=== PATIENT | male | born 2000 | race Caucasian/White ===

== ENCOUNTER 2021-01-03 20:47 | Observation (INO) ==
[2021-01-03] MEDS ORDERED: SODIUM CHLORIDE 0.9% 1000ML 1,000 ML IV SCH (21:15)
[2021-01-03 21:35] LABS: Albumin Level 5.2 gm/dl (3.4-5.0); BUN Creatinine Ratio 11.8 (10-20); Calcium 9.4 mg/dl (8.5-10.1); Creatinine Clr Calc Pharmacy 62.1 ml/min; Est GFR (African American) 90.2; Est GFR (Non-African American) 77.8; Potassium 3.6 mmol/L (3.5-5.1)
--- NOTE | 2021-01-03 21:36 | Emergency Department Note ---
Impression & Plan Acute appendicitis, Abdominal pain ED Provider Note NAME: HUYEN MARIE AGE: 20 SEX: M : 2000 ARRIVES VIA: Walk-In INFORMANT: Patient, ED PROVIDER(S): Tristen Hernández DO CHIEF COMPLAINT: Abdominal pain HPI: The patient is a 20-year-old male who presented to the emergency department for abdominal pain. The patient states he started noticing lower abdominal pain over the last 24 hours. He notices it mostly on the right side. He denies having any testicular pain. He denies having any nausea or vomiting. He denies having any chest pain fever or difficulty breathing. He states the pain is moderate and worsened with ambulation as well as palpation over the lower abdomen. He notices no hernias or swelling in the groin. He states the pain is moderate and relieved minimally with rest. His father is a physician and told him to come to the emergency department for possible appendicitis work-up. ROS: See above HPI for pertinent positives & negatives. A total of 10 systems reviewed and were otherwise negative. PAST MEDICAL HISTORY: See Below PAST SURGICAL HISTORY: See Below FAMILY HISTORY: See Below SOCIAL HISTORY: See Below HOME MEDICATIONS: See Below ALLERGIES: See Below VITALS: See Below PHYSICAL EXAMINATION: GENERAL: Patient is awake alert in no acute distress patient is resting comfortably and showing no signs of anxiety EYES: The conjunctivae are clear. The pupils are round and reactive. EARS, NOSE, MOUTH AND THROAT: The nose is without any evidence of any deformity. NECK: The neck is nontender and supple. RESPIRATORY: Normal respiratory effort is noted there is no evidence of wheezing rhonchi or rales CARDIOVASCULAR: Regular rate and rhythm noted there no murmurs rubs or gallops normal S1 normal S2. GASTROINTESTINAL: The abdomen is soft and nondistended. There is right lower quadrant tenderness to palpation but no guarding rigidity. : Testicles are descended and nontender bilaterally. Circumcised male genitalia was appreciated. MUSCULOSKELETAL/EXTREMITIES: There is no evidence of gross deformity full range of motion is noted in the hips and shoulders. SKIN: There is no obvious evidence of any rash. There are no petechiae, pallor or cyanosis noted. NEUROLOGIC: Patient is awake alert and oriented x3. MEDICAL DECISION MAKING: The patient is a 20-year-old male who presented to the emergency department for an evaluation of right lower quadrant abdominal pain. The patient did have reproducible right lower quadrant abdominal pain on physical exam. The pain was less than 24 hours. His white blood cell count was negative but given the location of his symptoms further radiographic studies were obtained to rule out appendicitis. The patient was treated with IV fluids in the emergency department. He did not wish to have any medication for pain. I discussed the patient's laboratory and radiographic studies with him. He was found to have signs of appendicitis on CT the abdomen and pelvis. I also discussed his case with the on-call general surgeon group. [facility] and disposition. Triage Nursing notes reviewed. Prior medical records reviewed Vital Signs: reviewed and remarkable for elevated blood pressure and tachycardia. Differential diagnosis: Appendicitis, testicular torsion, infections, diverticulitis, UTI, obstruction, mesenteric ischemia, aortic pathology, inflammatory bowel disease, renal colic, PUD, pancreatitis, biliary pathology, hernia, volvulus, constipation, as well as other pathologies. ER treatment provided: See below Diagnostics interpreted by me: ECG: none Cardiac Monitoring: An order was placed for continuous cardiac monitoring. The monitor shows a rate of 110 bpm with sinus tachycardia rhythm. Laboratory studies: As stated above and show below. Imaging studies: See below Consultation(s): I discussed this case with Clemente Gu who was on-call for the general surgical group. He is agreed to evaluate the patient in the emergency department for further management and disposition. Past Med/Surg History Surgical History S/P wisdom tooth extraction Social History Smoking Status: Never smoker Feels Safe at Home: Yes Allergies Allergies Allergy/AdvReac Type Severity Reaction Status Date / Time No Known Allergies Allergy Unverified 01/03/21 21:28 Home Meds Home Medications Medication Instructions Recorded Confirmed No Known Home Medications 01/03/21 01/03/21 Results & Data (ED) Vital Signs Vital Signs - 24 hr 01/03/21 20:50 01/03/21 21:38 01/03/21 22:18 Temperature 36.7 C Temperature Source Oral Pulse Rate 131 H Pulse Rate [Bilateral Apical] 85 106 H Respiratory Rate 19 20 20 Respiratory Effort / Characteristics Non-Labored Respiratory Depth Normal Blood Pressure 149/102 H Blood Pressure [Left Arm] 122/81 136/85 Blood Pressure Mean 117 Blood Pressure Mean [Left Arm] 94 102 Pulse Oximetry 98 100 99 Oxygen Delivery Method Room Air Room Air Room Air Sepsis Recent Fever Within 48 Hours No Sepsis New/Unexplained Change in Mental Status No Sepsis Action Taken by Nursing No Action Required 01/03/21 22:58 Temperature Temperature Source Pulse Rate Pulse Rate [Bilateral Apical] 105 H Respiratory Rate 20 Respiratory Effort / Characteristics Respiratory Depth Blood Pressure Blood Pressure [Left Arm] 149/80 H Blood Pressure Mean Blood Pressure Mean [Left Arm] 103 Pulse Oximetry 99 Oxygen Delivery Method Sepsis Recent Fever Within 48 Hours Sepsis New/Unexplained Change in Mental Status Sepsis Action Taken by Detention Medications Current Medication List: was personally reviewed by me Laboratory Data Attestation: I reviewed the patient's lab results. Result diagrams: 01/03/21 21:10 01/03/21 21:10 Lab Results 01/03/21 01/03/21 01/03/21 Range/Units 21:10 21:10 21:10 WBC 8.61 (4.8-10.8) K/uL RBC 5.22 (4.7-6.1) M/uL Hgb 16.4 (14.0-18.0) g/dL Hct 46.9 (42-52) % MCV 89.8 (80-100) fL MCH 31.4 (25-34) pg MCHC 35.0 (32-36) g/dL RDW Std Deviation 40.2 (36.4-46.3) fL RDW Coeff of Clau 12.3 (11.5-14.5) % Plt Count 292 (130-400) K/uL MPV 11.5 H (7.4-10.4) fL Immature Gran % (Auto) 0.2 % Neut % (Auto) 61.6 % Lymph % (Auto) 27.3 % [place] % (Auto) 8.5 % Eos % (Auto) 1.7 % Baso % (Auto) 0.7 % Neut # (Auto) 5.30 (1.4-6.5) K/uL Lymph # (Auto) 2.35 (1.2-3.4) K/uL [place] # (Auto) 0.73 H (0.11-0.59) K/uL Eos # (Auto) 0.15 (0-0.5) K/uL Baso # (Auto) 0.06 (0-0.2) K/uL Immature Gran # (Auto) 0.02 (0.00-0.02) K/uL Sodium 140 (136-145) mmol/L Potassium 3.6 (3.5-5.1) mmol/L Chloride 105 (98-107) mmol/L Carbon Dioxide 29 (21-32) mmol/L Anion Gap 6.0 (3-11) BUN 15 (7-18) mg/dl Creatinine 1.31 (0.6-1.4) mg/dl Est Cr Clr Drug Dosing 62.1 ml/min Est GFR ( Amer) 90.2 Est GFR (Non-Af Amer) 77.8 BUN/Creatinine Ratio 11.8 (10-20) Glucose 134 H (70-99) mg/dl Calcium 9.4 (8.5-10.1) mg/dl Total Bilirubin 0.8 (0.2-1) mg/dl AST 10 L (15-37) U/L ALT 20 (12-78) U/L Alkaline Phosphatase 111 (45-117) U/L Total Protein 8.5 H (6.4-8.2) gm/dl Albumin 5.2 H (3.4-5.0) gm/dl Globulin 3.3 (2.5-4.0) gm/dl Albumin/Globulin Ratio 1.6 (0.9-2) Lipase 93 (73-393) U/L Urine Color Yellow Urine Appearance Clear (Clear) Urine pH 5.5 (4.5-7.5) Ur Specific [place] 1.015 (1.000-1.030) Urine Protein Negative (Negative) Urine Glucose (UA) Negative (Negative) Urine Ketones Negative (Negative) Urine Blood Negative (Negative) Urine Nitrite Negative (Negative) Urine Bilirubin Negative (Negative) Urine Urobilinogen Negative (Negative) Ur Leukocyte Esterase Negative (Negative) COVID-19 Eval Order 01/03/21 Range/Units 23:15 WBC (4.8-10.8) K/uL RBC (4.7-6.1) M/uL Hgb (14.0-18.0) g/dL Hct (42-52) % MCV (80-100) fL MCH (25-34) pg MCHC (32-36) g/dL RDW Std Deviation (36.4-46.3) fL RDW Coeff of Clau (11.5-14.5) % Plt Count (130-400) K/uL MPV (7.4-10.4) fL Immature Gran % (Auto) % Neut % (Auto) % Lymph % (Auto) % [place] % (Auto) % Eos % (Auto) % Baso % (Auto) % Neut # (Auto) (1.4-6.5) K/uL Lymph # (Auto) (1.2-3.4) K/uL [place] # (Auto) (0.11-0.59) K/uL Eos # (Auto) (0-0.5) K/uL Baso # (Auto) (0-0.2) K/uL Immature Gran # (Auto) (0.00-0.02) K/uL Sodium (136-145) mmol/L Potassium (3.5-5.1) mmol/L Chloride (98-107) mmol/L Carbon Dioxide (21-32) mmol/L Anion Gap (3-11) BUN (7-18) mg/dl Creatinine (0.6-1.4) mg/dl Est Cr Clr Drug Dosing ml/min Est GFR ( Amer) Est GFR (Non-Af Amer) BUN/Creatinine Ratio (10-20) Glucose (70-99) mg/dl Calcium (8.5-10.1) mg/dl Total Bilirubin (0.2-1) mg/dl AST (15-37) U/L ALT (12-78) U/L Alkaline Phosphatase (45-117) U/L Total Protein (6.4-8.2) gm/dl Albumin (3.4-5.0) gm/dl Globulin (2.5-4.0) gm/dl Albumin/Globulin Ratio (0.9-2) Lipase (73-393) U/L Urine Color Urine Appearance (Clear) Urine pH (4.5-7.5) Ur Specific [place] (1.000-1.030) Urine Protein (Negative) Urine Glucose (UA) (Negative) Urine Ketones (Negative) Urine Blood (Negative) Urine Nitrite (Negative) Urine Bilirubin (Negative) Urine Urobilinogen (Negative) Ur Leukocyte Esterase (Negative) COVID-19 Eval [facility] Administered Medications Discontinued Medications Sodium Chloride (Nss 1000ml) 1,000 mls @ 999 mls/hr IV .Q1H1M FREDA Stop: 01/03/21 22:15 Last Infusion: 01/03/21 22:09 Dose: 0 mls/hr Documented by: [id number] Admin: 01/03/21 21:18 Dose: 999 mls/hr Documented by: [id number] Ioversol (Ioversol 100ml) 94 ml IV ONCE ONE Stop: 01/03/21 22:39 Last Admin: 01/03/21 22:39 Dose: 94 ml Documented by: [id number] Imaging Data Radiologist's Impression: Patient: HUYEN MARIE I Admit Date: 01/03/21 MR#: [id number] Address1: [facility] [place] Acct ID:[id number] Address2: Date: 2000 [facility] Zip: [place] [address] Age: 20 Location: ED Sex: M Room/Bed: Att Phy: Diagnosis: RLQ ABD PAIN Loren Phy: [facility] Service Date: 01/03/21 Fam Phy: Interpreting Phy: Juan Guerra MD Admit Phy: Ordering Phy: Tristen Hernández, cc: ~ CT SCAN OF THE ABDOMEN AND PELVIS WITH IV CONTRAST CLINICAL HISTORY: Right lower quadrant abdominal pain. COMPARISON STUDY: No priors. TECHNIQUE: Following the IV administration of 94 cc of Optiray 320, CT scan of the abdomen and pelvis is performed from the lung bases to the proximal femora. Images are reviewed in the axial, sagittal, and coronal planes. IV contrast was administered without complication. A dose lowering technique was utilized adhering to the principles of ALARA. CT DOSE: 241.81 mGy.cm FINDINGS: Lung bases: The heart is normal in size and without pericardial effusion. The lung bases are clear. Liver: The contrast-enhanced liver is normal in size, contour, and attenuation. There is no intrahepatic biliary ductal dilatation. The hepatic veins and portal veins are patent. Gallbladder: Unremarkable. Spleen: Normal in size and attenuation. Pancreas: Unremarkable. Adrenal glands: Unremarkable. Kidneys: The contrast enhanced kidneys are normal in size and without hydronephrosis. The kidneys enhance and excrete symmetrically. Abdominal vasculature: The abdominal aorta is normal in course and caliber. Bowel: There is no bowel obstruction. Moderate fecal retention is seen throughout the colon. The appendix is distended and fluid-filled, measuring up to 10 mm as seen on axial image #20 and 64. The appendiceal wall is thickened and there is mild periappendiceal inflammation. Findings are consistent with acute appendicitis. A calcified appendicolith is seen on axial image #249. No organized fluid collection is seen to suggest abscess. Peritoneum: There is no intraperitoneal free air or abdominal ascites. Lymphadenopathy: None. Pelvic viscera: The bladder, prostate, and seminal vesicles are normal as visualized. Skeletal structures: No lytic or blastic lesions are seen. IMPRESSION: Findings are consistent with acute appendicitis. There is no evidence of abscess or perforation. ACT 112: Negative or not required by law. Electronically signed by: Juan Guerra M.D. 01/03/2021 10:55 PM Dictated: 01/03/212251 Transcribed: 01/03/212251 Discharge Plan Visit Data Chief Complaint: Abdominal Pain Stated Complaint: RLQ ABD PAIN ED Provider: Tristen Hernández Discharge Problem: Acute appendicitis, Abdominal pain Forms Stand Alone Forms: [facility] EventRegist Prescriptions Prescriptions: No Action No Known Home Medications RF: 0 Referrals Referrals: [facility] [Primary Care Provider] - Discharge Problem: Acute appendicitis Qualifiers: Acute appendicitis type: with localized peritonitis Appendicitis gangrene presence: without gangrene Appendicitis perforation presence: without perforation Appendicitis abscess presence: without abscess Qualified Code(s): K35.30 - Acute appendicitis with localized peritonitis, without perforation or gangrene Abdominal pain Qualifiers: Abdominal location: right lower quadrant Qualified Code(s): R10.31 - Right lower quadrant pain
[2021-01-03 21:38] LABS: Albumin Globulin Ratio 1.6 (0.9-2); Bilirubin,Total 0.8 mg/dl (0.2-1); Globulin 3.3 gm/dl (2.5-4.0); Total Protein 8.5 gm/dl (6.4-8.2)
[2021-01-03 21:40] LABS: Appearance Urine Clear (Clear); Bilirubin Urine Negative (Negative); Blood Urine Negative (Negative); Color Urine Yellow; Glucose Urine UA Negative (Negative); Ketones Urine Negative (Negative); Leukocyte Esterase Urine Negative (Negative); Nitrite Urine Negative (Negative); Protein Urine Negative (Negative); Specific Gravity Urine 1.015 (1.000-1.030); Urobilinogen Urine Negative (Negative); pH Urine 5.5 (4.5-7.5)
[2021-01-03 22:07] LABS: Basophils # (auto) 0.06 K/uL (0-0.2); Basophils % (auto) 0.7 %; Eosinophils # (auto) 0.15 K/uL (0-0.5); Eosinophils % (auto) 1.7 %; Hematocrit (blood only) 46.9 % (42-52); Hemoglobin 16.4 g/dL (14.0-18.0); Immature Granulocytes # (auto) 0.02 K/uL (0.00-0.02); Immature Granulocytes % (auto) 0.2 %; Lymphocytes # (auto) 2.35 K/uL (1.2-3.4); Lymphocytes % (auto) 27.3 %; Mean Corpuscular Hemoglobin 31.4 pg (25-34); Mean Corpuscular Volume 89.8 fL (80-100); Mean Platelet Volume 11.5 fL (7.4-10.4); Monocytes # (auto) 0.73 K/uL (0.11-0.59); Monocytes % (auto) 8.5 %; Neutrophils % (auto) 61.6 %; Platelet Count 292 K/uL (130-400); RDW Coefficient of Variation 12.3 % (11.5-14.5); RDW Standard Deviation 40.2 fL (36.4-46.3); Red Blood Count 5.22 M/uL (4.7-6.1); White Blood Count 8.61 K/uL (4.8-10.8)
[2021-01-03] MEDS ORDERED: IOVERSOL 100ml IV ONE (22:38)
--- NOTE | 2021-01-03 22:57 | CT Scan Report ---
CT SCAN OF THE ABDOMEN AND PELVIS WITH IV CONTRAST CLINICAL HISTORY: Right lower quadrant abdominal pain. COMPARISON STUDY: No priors. TECHNIQUE: Following the IV administration of 94 cc of Optiray 320, CT scan of the abdomen and pelvi s is performed from the lung bases to the proximal femora. Images are reviewed in the axial, sagittal , and coronal planes. IV contrast was administered without complication. A dose lowering technique wa s utilized adhering to the principles of ALARA. CT DOSE: 241.81 mGy.cm FINDINGS: Lung bases: The heart is normal in size and without pericardial effusion. The lung bases are clear. Liver: The contrast-enhanced liver is normal in size, contour, and attenuation. There is no intrahepa tic biliary ductal dilatation. The hepatic veins and portal veins are patent. Gallbladder: Unremarkable. Spleen: Normal in size and attenuation. Pancreas: Unremarkable. Adrenal glands: Unremarkable. Kidneys: The contrast enhanced kidneys are normal in size and without hydronephrosis. The kidneys enh ance and excrete symmetrically. Abdominal vasculature: The abdominal aorta is normal in course and caliber. Bowel: There is no bowel obstruction. Moderate fecal retention is seen throughout the colon. The appe ndix is distended and fluid-filled, measuring up to 10 mm as seen on axial image #20 and 64. The edwin endiceal wall is thickened and there is mild periappendiceal inflammation. Findings are consistent wi th acute appendicitis. A calcified appendicolith is seen on axial image #249. No organized fluid camilo ection is seen to suggest abscess. Peritoneum: There is no intraperitoneal free air or abdominal ascites. Lymphadenopathy: None. Pelvic viscera: The bladder, prostate, and seminal vesicles are normal as visualized. Skeletal structures: No lytic or blastic lesions are seen. IMPRESSION: Findings are consistent with acute appendicitis. There is no evidence of abscess or perf oration. ACT 112: Negative or not required by law. Electronically signed by: Juan Guerra M.D. 01/03/2021 10:55 PM
[2021-01-03] MEDS ORDERED: cefOXitin 2,000 MG/60 ML BAG IV STA (23:30)
[2021-01-03] MEDS: LACTATED RINGER'S 1,000 ML IV SCH (23:49)
--- NOTE | 2021-01-04 00:04 | History & Physical Report ---
Date of Service January 03, 2021 Assessment & Plan (1) Acute appendicitis: Due to the patient's acute appendicitis he will be admitted to the hospital and we will proceed in the following manner: We will plan on performing a laparoscopic, possible open appendectomy. I discussed the risks, benefits, and alternatives of the procedure. He wishes to proceed and informed consent has been obtained. We will place him on antibiotics in the form of cefoxitin, and he has received his first dose in the emergency department We will keep him n.p.o. in anticipation for surgery We will hydrate him with IV fluids We will provide antiemetics We will provide analgesics We will utilize SCDs for DVT prevention. We will not use any chemical means such as Lovenox as surgery is planned. With the patient's permission I did discuss the above plan with his father by phone. 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 Patient says that his pain has been present for approximately 24 hours and has gotten progressively worse. The pain has always been present in the right lower quadrant and does not radiate. He notes that the pain was somewhat worse with certain movements of his leg. He also notes it was worse on the car ride to the hospital. He does not report any palliative factors other than lying still.He notes he has never had abdominal surgery in the past.With his current presentation he did not have any nausea, vomiting, fevers, shakes, or chills. He also denies any diarrhea. Upon arrival to the emergency department the patient did have a CT scan of the abdomen that showed findings consistent with acute appendicitis. No evidence of appendiceal rupture was noted. He did have a CBC where his white blood cell count, hemoglobin, hematocrit, and platelet count were all noted to be within normal range. He had a chemistry profile where his sodium, potassium, BUN, and creatinine were all noted to be within normal range as well. A Covid test has been performed and is noted to be negative. At the time of my interview the patient was resting comfortably in bed in minimal pain and he was in no distress. Allergies Allergy/AdvReac Type Severity Reaction Status Date / Time No Known Allergies Allergy Unverified 01/03/21 21:28 Home Medications Medication Instructions Recorded Confirmed Type No Known Home Medications 01/03/21 01/03/21 History Past Med/Surg History Surgical History S/P wisdom tooth extraction Social History Smoking Status: Never smoker Hx Alcohol Use: No Hx Substance Use: No Preferred Language: Frisian Communication Ability: Effective Lime Mixer Required: No Beliefs That Will Affect Care: None Current Living Situation: Other Current Living Situation Comment: [employer] student Other Information That Helps Us Care for You: No Feels Safe at Home: Yes Safety Concerns: Feels Safe At This Time Assistive Devices: None Review of Systems Constitutional: no fever, no chills and no fatigue Eyes: no eye pain Ear, Nose, Mouth, Throat: no ear pain Respiratory: no cough and no dyspnea Cardiovascular: no chest pain Gastrointestinal: + abdominal pain; no nausea and no vomiting Genitourinary: no dysuria Musculoskeletal: no back pain Integumentary: no rash Neurologic: no localized weakness Physical Exam Constitutional: well developed and well nourished; no acute distress Eyes: no conjunctival abnormality ENMT: Ears: no hearing impairment Neck: trachea midline Respiratory: normal respiratory effort, lungs clear to auscultation Cardiovascular: Rate/Rhythm: regular rate Gastrointestinal (Abdomen): Abdomen is soft and nontender abdomen is soft and nondistended. Bowel sounds are present. There is no rebound tenderness or guarding. Patient did have tenderness with deep palpation of the right lower quadrant. Musculoskeletal: No calf tenderness Skin: no rashes, warm and dry Neurologic: moves all extremities Psychiatric: A+Ox3, euthymic affect Results & Data Results & Data (MN) Vital Signs (Past 12 Hours) Vital Signs Temp Pulse Pulse Resp BP BP Pulse Ox 01/03/21 23:54 89 20 141/76 H 99 01/03/21 22:58 105 H 20 149/80 H 99 01/03/21 22:18 106 H 20 136/85 99 01/03/21 21:38 85 20 122/81 100 01/03/21 20:50 36.7 C 131 H 19 149/102 H 98 Code Status & VTE Plan VTE Prophylaxis Plan VTE Prophylaxis will be ordered: Yes Supervising Physician Co-Signing Physician Notes As per Clemente Acosta physician medical office assistant I saw the patient and examined him approximately 4:15 on 01/04/21 Reviewed the test with the patient examined the patient had right lower quadrant tenderness McBurney's point Options of therapy were explained to the patient included antibiotic which I did not recommend the patient has an appendicolith therefore we will proceed with laparoscopic appendectomy possible open risk and complication of the procedure were explained to the patient all questions were answered permit was signed and witnessed PG Care Time/CCT Total # of Minutes Spent Total Time Spent with Patient: Total time spent is greater than 50% in coordination of care (as documented) at patient's floor/unit and/or counseling patient: Coding Level of Care Code 49502 OBS Care - Level 3 Diagnoses Acute appendicitis K35.30 Acute appendicitis type: with localized peritonitis Appendicitis abscess presence: without abscess Appendicitis gangrene presence: without gangrene Appendicitis perforation presence: without perforation (1) Acute appendicitis Acute appendicitis type: with localized peritonitis Appendicitis abscess presence: without abscess Appendicitis gangrene presence: without gangrene Appendicitis perforation presence: without perforation Qualified Code(s): K35 .30 - Acute appendicitis with localized peritonitis, without perforation or gangrene
[2021-01-04] MEDS ORDERED: ATROPINE SULFATE 0.1 MG/ML 10ML SYR IV PRN (00:16)
[2021-01-04] MEDS ORDERED: LABETALOL HCL IV 5 MG/ML 20ML IV PRN (00:16)
[2021-01-04] MEDS ORDERED: PHENYLEPHRINE 100MCG/ML 5ML SYR IV PRN (00:16)
[2021-01-04] MEDS ORDERED: ePHEDrine sulfate 50 MG/ML AMP IV PRN (00:16)
[2021-01-04] MEDS ORDERED: ONDANSETRON INJ 2 MG/ML 2 ML VIAL IV PRN ×2 (00:16→01:22)
[2021-01-04] MEDS ORDERED: fentaNYL citrate 100 MCG/2 ML VIAL IV PRN (00:16)
[2021-01-04] MEDS ORDERED: MEPERIDINE HCL 25 MG/ML CARP/VIAL IV PRN (00:16)
[2021-01-04] MEDS ORDERED: HYDROmorphone INJ 1 MG/ML SYRINGE IV PRN (00:16)
--- NOTE | 2021-01-04 00:20 | Anesthesiology Consultation ---
Date of Service January 04, 2021 Covid 19 negative on 01/03/21. Assessment & Plan (1) Encounter for pre-operative examination: Chart Review Chart Review: Acceptable Risk for Surgery and Patient NOT seen in Pre Admission Testing Consults Requested none History Height/Weight Height: 5 ft 7 in Weight: 48.8 kg Allergies Allergy/AdvReac Type Severity Reaction Status Date / Time No Known Allergies Allergy Unverified 01/03/21 21:28 Medications Home Medications Medication Instructions Recorded Confirmed Last Taken No Known Home Medications 01/03/21 01/03/21 Unknown Active Medications Generic Name Dose Route Start Last Admin Trade Name Freq PRN Reason Stop Dose Admin Lactated Ringer's 1,000 mls @ 75 mls/hr 01/03/21 23:30 01/03/21 23:49 Lr IV 02/02/21 23:29 75 mls/hr .[id number] FREDA Administration NPO Date Last Intake of Fluids: 01/03/21 Time Last Intake of Fluids: 18:30 Date Last Intake of Solids: 01/03/21 Time Last Intake of Solids: 18:30 Past Surgical History Surgical History S/P wisdom tooth extraction Social History Smoking Status: Never smoker Physical Exam Vital Signs Last Vital Signs Temp 36.7 C 01/03/21 20:50 Pulse 89 01/03/21 23:54 Resp 20 01/03/21 23:54 BP 141/76 H 01/03/21 23:54 Pulse Ox 99 01/03/21 23:54 Testing Laboratory Results 01/03/21 21:10 01/03/21 21:10 Urine Color Yellow 01/03/21 21:10 Urine Appearance Clear (Clear) 01/03/21 21:10 Urine pH 5.5 (4.5-7.5) 01/03/21 21:10 Ur Specific [place] 1.015 (1.000-1.030) 01/03/21 21:10 Urine Protein Negative (Negative) 01/03/21 21:10 Urine Glucose (UA) Negative (Negative) 01/03/21 21:10 Urine Ketones Negative (Negative) 01/03/21 21:10 Urine Nitrite Negative (Negative) 01/03/21 21:10 Ur Leukocyte Esterase Negative (Negative) 01/03/21 21:10
[2021-01-04] MEDS ORDERED: MoRPHine SULFATE 2 MG/ML CARP IV PRN (01:22)
[2021-01-04] MEDS ORDERED: ACETAMINOPHEN 1,000 MG/100 ML VIAL IV PRN (01:22)
[2021-01-04] MEDS: LACTATED RINGER'S 1,000 ML IV SCH (01:24)
[2021-01-04] MEDS ORDERED: LIDOCAINE/EPINEPHRINE 1% 20 ML VIAL ONE (05:15)
[2021-01-04] MEDS ORDERED: PROPOFOL IV EMULSION 10 MG/ML 20 ML VIAL IV ONE (05:39)
[2021-01-04] MEDS ORDERED: fentaNYL citrate 100 MCG/2 ML VIAL ONE ×2 (05:39→06:08)
[2021-01-04] MEDS ORDERED: cefOXitin 2,000 MG in DEXTROSE 5% 50 ML IV SCH (06:00)
[2021-01-04] MEDS ORDERED: LIDOCAINE HCL 2% 2 ML VIAL/AMP(20MG/ML) INFIL ONE (06:01)
[2021-01-04] MEDS ORDERED: SUCCINYLCHOLINE 100MG/5ML SYR IV ONE (06:01)
[2021-01-04] MEDS ORDERED: ROCURONIUM BROMIDE 10 MG/ML 5 ML VIAL IV ONE (06:01)
[2021-01-04] MEDS ORDERED: NEOSTIGMINE METHYLSULFATE 5 MG/5 ML SYR ONE (06:01)
[2021-01-04] MEDS ORDERED: DEXAMETHASONE SOD INJ 4 MG/ML VIAL ONE (06:02)
[2021-01-04] MEDS ORDERED: ONDANSETRON INJ 2 MG/ML 2 ML VIAL ONE (06:02)
[2021-01-04] MEDS ORDERED: GLYCOPYRROLATE 0.2 MG/ML VIAL ONE (06:02)
[2021-01-04] MEDS ORDERED: PHENYLEPHRINE 100MCG/ML 5ML SYR ONE (06:04)
[2021-01-04] MEDS ORDERED: cefOXitin 2,000 MG in DEXTROSE 5% 50 ML IV ONE (06:21)
--- NOTE | 2021-01-04 06:24 | Post Operative Brief Note ---
PG Immediate Post Op with CF Date of Surgery January 04, 2021 Pre & Post Diagnosis Operation Date: 01/04/21 05:30 Pre-Op Diagnosis: Acute appendicitis Post-Op Diagnosis: Acute appendicitis I identified the patient and participated in the time-out.: Yes Procedure Operation Date: 01/04/21 05:30 Actual Procedures p Laparoscopic Appendectomy(Not Applicable) - Greg Jolley MD Surgeon Greg Jolley MD [employer] b shane sandhu Estimated Blood Loss 5 Findings Consistent with Post-Op Diagnosis Specimens Specimen Description: A. Appendix
--- NOTE | 2021-01-04 06:38 | Operative Report ---
PG Post Operative Report Pre & Post Diagnosis Operation Date: 01/04/21 05:30 Pre-Op Diagnosis: Acute appendicitis Post-Op Diagnosis: Acute appendicitis I identified the patient and participated in the time-out.: Yes Procedure Operation Date: 01/04/21 05:30 Actual Procedures p Laparoscopic Appendectomy(Not Applicable) - Greg Jolley MD The patient was brought into the operating theater general endotracheal anesthesia patient now was prepped Betadine solution properly draped systemic antibiotics given he had had previous dosing he first came into the ER patient that was prepped byline solution properly draped timeout was had patient was identified small incision was made supraumbilically sufficient to place this needle followed by CO2 followed by 5 mm trocar point of interest back to no injury identified we had minimal mesenteric right lower quadrant was visualized we could see the appendix is dilated as right lower quadrant it was not retrocecal but it was long therefore on direct visualization we placed a 5 mm subcostal ports on the right with preemptive local analgesic at this time we were able then to elevate the cecal cap and identified appendix was easily mobile has some fibrinous exudate towards the base at this point we then converted the 5 mm umbilical port by insufflating towards the right upper quadrant trocar site enlarging the incision and then on the right visualization placed the left millimeter umbilical port the 5 mm that we had extracted was placed in the left lower quadrant with preemptive local analgesia and direct visualization the camera was then placed in left lower quadrant using the umbilical and right upper quadrant port we elevated the appendix we created a window between the appendix at the cecum the patient had a mesoappendix that we clipped with 10 mm clips a small bleeder in the mesoappendix was then controlled with cautery and then we clipped where hemostasis was excellent at fibrinous exudate and inferior aspect towards the cecum to the abdominal wall which were freed once we had created a suggestion of movement area we then used purple load of the DARRION fired across the base of the appendix the appendix was then placed in Endopouch and taken out intact through the epigastric port the appendix was dilated it was inflamed but did not have any fibrinous exudate right lower quadrant and was checked when stasis appears satisfactory we placed the camera right upper quadrant port visualize left lower quadrant port no bleeding as was the umbilical port and at this point we removed those 2 and last the right upper quadrant port fascial stitch of 0 Vicryl x2 from the umbilical area was closed [id number] 4-0 Monocryl for the other trocar sites Steri-Strips applied pr ocedure was tolerated well estimated loss 5 cc addendum Clemente Acosta physician assistant surveyor was present.case and helped the retraction exposure and wound closure Surgeon Greg Jolley MD Director Of Recruitment And Admissions charlene sandhu Estimated Blood Loss 5 Findings Consistent with Post-Op Diagnosis Specimens appendix Description of Procedure merda I attest to the content of the Intraoperative Record and any orders documented therein. Any exceptions are noted below.
--- NOTE | 2021-01-04 07:25 | Anesthesiology Progress Note ---
Date of Service January 04, 2021 Anesthesia Post Procedure Vital Signs Vital Signs: Temp Pulse Pulse Pulse Pulse Resp BP 01/04/21 07:20 37.4 C 81 12 01/04/21 07:10 83 16 01/04/21 07:00 65 15 01/04/21 06:51 36.8 C 104 H 16 01/04/21 01:10 37.5 C 93 H 16 01/04/21 00:57 82 18 01/03/21 23:54 89 20 01/03/21 22:58 105 H 20 01/03/21 22:18 106 H 20 01/03/21 21:38 85 20 01/03/21 20:50 36.7 C 131 H 19 149/102 H BP Pulse Ox 01/04/21 07:20 144/79 H 97 01/04/21 07:10 149/82 H 98 01/04/21 07:00 150/80 H 100 01/04/21 06:51 128/94 100 01/04/21 01:10 143/73 H 100 01/04/21 00:57 129/75 98 01/03/21 23:54 141/76 H 99 01/03/21 22:58 149/80 H 99 01/03/21 22:18 136/85 99 01/03/21 21:38 122/81 100 01/03/21 20:50 98 Pain Intensity Right Abdomen: Pain Intensity: 3 Transfer of Care Handoff Completed per policy Notes Mental Status: alert / awake / arousable Patient Amnestic to Procedure: Yes Nausea / Vomiting: adequately controlled Pain: adequately controlled Airway Patency, RR, SpO2: stable & adequate BP & HR: stable & adequate Hydration State: stable & adequate Anesthetic Complications: no major complications apparent and Pt Satisfied with anesthetic care
[2021-01-04] MEDS ORDERED: oxyCODONE IR HOME PACK PO ONE (09:00)
--- NOTE | 2021-01-06 00:39 | Discharge Summary (DS) ---
ADMISSION DIAGNOSIS: Acute appendicitis. DISCHARGE DIAGNOSIS: Acute appendicitis. 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 He underwent a CT scan of the abdomen that showed concern for acute appendicitis. The patient was taken to the operating room on 01/04/2021 where laparoscopic appendectomy was performed without incident. Following the operation, the patient's diet was advanced, which he tolerated and he was deemed stable for discharge home after an uneventful postoperative course on 01/04/2021. The patient was instructed on appropriate wound care, diet, and activity. He will follow up with Dr. Jolley in the office in 1-2 weeks.
== END 2021-01-04 14:36 | disposition home or self-care (01) ==
LOC: ED 20:47 → 3E 20:47